=== PATIENT | male | born 1970 | race Caucasian/White ===

== ENCOUNTER 2017-04-10 14:23 | Inpatient (IN) | payer BC, OTHER ==
[~2017-04-10] VITALS: Ht 175.3 cm; Wt 65.8 kg
--- NOTE | 2017-04-10 18:30 | NUR ---
Pre-admission assessment Pt is 46 y/o male admitted for norco dependence. Pt presents with the following VS: HR: 71, BP: 122/75, SpO2: 98%, Pain: 0, RR: 14. Skin is intact. Pt expressing understanding the admission process and appears competent to sign admissions consents. Pt has provided urine for UDS. PT reports using 100mg of norco 3 hours ago.
[2017-04-10] MEDS ORDERED: PRED20TA PO (18:40)
[2017-04-10] MEDS ORDERED: MIRALAX 17 GM POWD.PACK PO PRN (18:45)
[2017-04-10] MEDS ORDERED: LORAZEPAM 2 MG/1 ML VIAL IM PRN (18:45)
[2017-04-10] MEDS ORDERED: DICYCLOMINE HCL 20 MG TABLET PO PRN (18:45)
[2017-04-10] MEDS ORDERED: BUPRENORPHINE HCL 2 MG TAB.SUBL SL PRN (18:45)
[2017-04-10] MEDS ORDERED: MAGNESIUM HYDROXIDE 30 ML LIQUID UDC PO PRN (18:45)
[2017-04-10] MEDS ORDERED: LOPERAMIDE HCL 2 MG CAPSULE PO PRN ×2 (18:45)
[2017-04-10] MEDS ORDERED: diphenhydrAMINE 50 MG CAPSULE PO PRN (18:45)
[2017-04-10] MEDS ORDERED: MAG HYDROX/AL HYDROX/SIMETH 30 ML LIQUID UDC PO PRN (18:45)
[2017-04-10] MEDS ORDERED: ONDANSETRON 4 MG/2 ML VIAL IM PRN (18:45)
[2017-04-10] MEDS ORDERED: LORAZEPAM 1 MG TABLET PO PRN ×2 (18:45)
[2017-04-10 19:18] LABS: *AMPHETAMINE, URINE NEGATIVE (NEGATIVE); *BARBITURATE, URINE NEGATIVE (NEGATIVE); *CANNABINOID, URINE NEGATIVE (NEGATIVE); *COCCAINE, URINE NEGATIVE (NEGATIVE); *OPIATE, URINE POSITIVE (NEGATIVE); *PHENCYCLIDINE SCREEN,URINE NEGATIVE (NEGATIVE)
[2017-04-10 19:31] LABS: BASOPHILS # (AUTO) 0.1 K/uL (0.0-8.0); BASOPHILS % (AUTO) 0.7 % (0.0-2.0); EOSINOPHILS % (AUTO) 0.4 % (0.0-7.0); HEMOGLOBIN 11.4 G/DL (14.0-18.0); LYMPHOCYTES # (AUTO) 3.6 K/UL (0.8-4.8); LYMPHOCYTES % (AUTO) 40.3 % (20.5-51.5); MEAN CORPUSCULAR HEMOGLOBIN 30.9 UUG (27.0-31.0); MEAN CORPUSCULAR HGB CONC 34 g/dL (32.0-37.0); MONOCYTES # (AUTO) 1.1 K/UL (0.1-1.30); MONOCYTES % (AUTO) 12.1 % (0.0-11.0); NEUTROPHILS # (AUTO) 4.2 K/UL (1.8-8.9); NEUTROPHILS % (AUTO) 46.5 % (38.5-71.5); PLATELET COUNT (AUTO) 582 K/UL (150-450)
[2017-04-10 19:36] LABS: ALANINE AMINOTRANSFERASE 18 U/L (16-63); ALKALINE PHOSPHATASE 81 U/L (50-136); ASPARTATE AMINOTRANSFERASE 28 U/L (15-37); BILIRUBIN,TOTAL 0.3 mg/dL (0.2-1.0); CARBON DIOXIDE 27 mmol/L (21-32); CHLORIDE 99 mmol/L (98-107); GLUCOSE 98 mg/dL (74-106); MAGNESIUM 2.1 mg/dL (1.8-2.4); POTASSIUM 3.6 mmol/L (3.5-5.1); TOTAL PROTEIN, SERUM 6.9 g/dL (6.4-8.2); UREA NITROGEN, BLOOD 25 mg/dL (7-18)
[2017-04-10 19:44] LABS: ETHANOL < 3 MG/DL (0-0)
[2017-04-10 19:46] LABS: THYROID STIMULATING HORMONE 0.534 mIU/mL (0.358-3.740)
[2017-04-10 20:00] VITALS: BP 109/76
--- NOTE | 2017-04-10 20:00 | NUR ---
Admission Note Pt is a 46 year old male admitted on 04/10/2017 for Opiate/ETOH/Benzo dependence. Pt denies allergies, reports history of seizure, last epsisode "6 months ago". Pt was able to provide urine drug screen. Upon admission, CIWA 4 and COWS 5, BP 109/76, pulse 65, respirations 16, SpO2 97%, temp 97.8 room air, weight 145, height 5'9". Pt denies having a primary care provider. Pt denies being hospitalized within the past 30 days. PT is able to understand and respond to all questions pertaining to his hospitalization. Substance Abuse History is as Follows: 1. Oxycodone IV 120mg/intermittently, last intake of 180mg on 04/04/2017. 2. Hydrocodone PO 100mg - 120mg/daily, last intake of 100mg on 04/10/2017 3 Vodka 1 liter/intermittently, last intake of 1 liter on 04/09/2017 4. Valium 40mg /daily, last intake of 40mg on 04/09/2017 When pt does not use he experiences s/s: "Seizures, aches, chills and sweats all over my body, anxiety". Pt longest sober period was for "a few days this year in 2017". Pts trigger to use, "because I hurt my back 4 years ago and because I'm just anxious all the time". Treatment history is as follows: [facility], 2012 for 2 weeks, [facility], 2013 for 7 days and [place], 2016 for 3 days. PMH: Anxiety, depression, Bipolar I, ADD, Degenerative Disc -Bulging L3 Disc (pt hurt his back at work), Hepatitis C and appendicitis in 2008. Pt brought medications upon admission, reconciled. Skin is noted to be flushed, pt reports anxiety, muscle aches/chills throughout body,, denies SOB/chest pain, abdomen soft, denies SI/HI. Education provided, education pamphlets provided and left at bedside, pt oriented to room and encouraged to notify staff with any concerns. Safety measures in place, call light within reach, side rails up x2, bed locked and in low position. Will continue to monitor.
[2017-04-10] MEDS: METHOCARBAMOL 750 MG TABLET PO PRN (21:41)
[2017-04-10] MEDS: HYDROXYZINE PAMOATE 25 MG CAPSULE PO PRN (21:41)
--- NOTE | 2017-04-10 21:42 | NUR ---
PRN Administration Pt reports muscle aches throughout body, anxiety and requests aid to help him sleep. Robaxin 750mg PRN, Vistaril 50mg PRN and Benadryl 50mg PRN administered. Safety measures in place, will continue to monitor.
--- NOTE | 2017-04-10 22:42 | NUR ---
PRN Reassessment Upon reassessment, pt is in bed, eyes closed resting, respirations even/unlabored, no s/s of distress noted. Safety measures in place. will continue to monitor.
[2017-04-11] VITALS: BP 107/79
--- NOTE | 2017-04-11 | NUR ---
Vital Signs Bp 107/79, pulse 82, resp 14, Spo2 96%, temp 98, no pain 0/10 COWS/CIWA deferred d/t pt sleeping - to assess while pt is awake as ordered. Safety measures in place, will continue to monitor.
[2017-04-11] MEDS ORDERED: ESCI20TA PO (02:39)
[2017-04-11 04:00] VITALS: BP 105/63
--- NOTE | 2017-04-11 04:00 | NUR ---
Vital Signs Bp 105/63, pulse 69, resp 12, Spo2 96%, temp 97.9, no pain 0/10 COWS/CIWA deferred d/t pt sleeping - to assess while pt is awake as ordered. Safety measures in place, will continue to monitor.
--- NOTE | 2017-04-11 07:00 | NUR ---
End of Shift Pt is a 46 year old male admitted for Opiate/etoh/benzo dependence. Upon admission, pt reports using Oxycodone IV 120mg/intermittently, last intake of 180mg on 04/04/2017, Hydrocodone PO 100mg - 120mg/daily, last intake of 100mg on 04/10/2017, Vodka 1 liter/intermittently, last intake of 1 liter on 04/09/2017 and Valium 40mg /daily, last intake of 40mg on 04/09/2017. PMH: Anxiety, depression, Bipolar I, ADD, Degenerative Disc -Bulging L3 Disc (pt hurt his back at work), Hepatitis C and appendicitis in 2008. NKA, fall/seizure precautions - reports seizure episode "6 months ago" d/t withdrawal. During shift, Robaxin 750mg PRN, Vistaril 50mg PRN and Benadryl 50mg PRN administered for body aches, anxiety and sleep. COWS 5 and CIWA 4. Pt slept for 5 hours, intake of 737 ml PO, voids x2 and stool x1. Safety measures in place, call light within reach, side rails up x2, bed locked and in low position. Endorsed to day shift nurse.
--- NOTE | 2017-04-11 07:05 | NUR ---
Start of Shift Pt is a 46 y/o male admitted for oxycodone and hydrocodone dependence, the pt also reports drinking vodka daily. Pt has been placed on a 5 day Ativan and 5 day Subutex taper. Pt is tolerating the taper and moderately withdrawing at this time AEB COWS 5, CIWA 4 at 1200. Pt slept 5 hours. Pt received prn Robaxin, Vistaril and Benadryl. VS WNL. Full Code. PT is alert and oriented x4. Pt is in STABLE condition at this time. Remains compliant with medication and diet regimen. All needs have been met, All safety measures in place per hospital policy. Bed in lowest position, side rails up x2, call-light within reach. Will continue to monitor
[2017-04-11 08:00] VITALS: BP 115/72
[2017-04-11] MEDS: THIAMINE HCL 100 MG TABLET PO SCH (08:39)
[2017-04-11] MEDS: MULTIVITAMINS,THERAPEUTIC TABLET PO SCH (08:39)
[2017-04-11] MEDS: FOLIC ACID 1 MG TABLET PO SCH (08:39)
[2017-04-11] MEDS ORDERED: TUBERCULIN,PURIF.PROT.DERIV. 5 TU/0.1 ML TEST ID ONE (09:00)
[2017-04-11] MEDS ORDERED: TRAZODONE 100 MG TABLET PO PRN (11:30)
[2017-04-11 12:00] VITALS: BP 119/74
[2017-04-11] MEDS: ESCITALOPRAM OXALATE 10 MG TABLET PO SCH (12:08)
[2017-04-11] MEDS: LORAZEPAM 1 MG TABLET PO SCH ×3 (13:20→20:38)
[2017-04-11] MEDS: BUPRENORPHINE HCL 2 MG TAB.SUBL SL SCH ×3 (13:20→20:41)
[2017-04-11 16:00] VITALS: BP 143/94
--- NOTE | 2017-04-11 19:07 | NUR ---
End of Shift Endorsement given to nightshift nurse. Pt is a 46 y/o male admitted for oxycodone and hydrocodone dependence, the pt also reports drinking vodka daily. Pt has been placed on a 5 day Ativan and 5 day Subutex taper. Pt is tolerating the taper and moderately withdrawing at this time AEB COWS 3, CIWA 3 at 1600. Pt participated in groups and activities. Intake: 1300ml, Void x3, BM x0. . VS WNL. Full Code. PT is alert and oriented x4. Pt is in STABLE condition at this time. Remains compliant with medication and diet regimen. All needs have been met, All safety measures in place per hospital policy. Bed in lowest position, side rails up x2, call-light within reach. Will continue to monitor
--- NOTE | 2017-04-11 19:10 | NUR ---
Start of Shift Patient Received. Patient is noted in his room, sleeping, breathing even and non labored. No signs of pain or discomfort noted. Patient is a 46 year old male, admitted on 04/10/17 for Opiate, Benzo, ETOH Dependence. He was placed on 5 day Ativan and 5 day Subutex. Patient verbalizes no known allergies, wishes to be full code, following a regular diet, skin noted intact, placed on fall and seizure precautions. Past medical History of Anxiety, Depression, Bipolar I, ADD, Degenerative Disc- Bulging L3 disc, Hep C, Appendectomy (2008). Per endorsement, patient is tolerating plan of care well with taper medications noted to be effective. Last noted CIWA noted 3 and COWS noted 3. All needs attended to promptly. Will continue to monitor.
[2017-04-11 20:23] VITALS: BP 109/62
[2017-04-11] MEDS: METHOCARBAMOL 750 MG TABLET PO PRN (20:37)
--- NOTE | 2017-04-11 20:37 | NUR ---
PRN Medication Administration Patient verbalizing back spasms. PRN Robaxin administered as per order. Will continue to monitor.
--- NOTE | 2017-04-11 21:40 | NUR ---
PRN Medication Administration patient able to verbalize back spasms noted to subsided due to PRN Tuan. Will continue to monitor. Addendum: 04/12/17 at 0719 by JESSICA CHOI LVN PRN Medication Reassessment
[2017-04-12 00:20] VITALS: BP 121/75
[2017-04-12 04:00] VITALS: BP 117/74
--- NOTE | 2017-04-12 07:08 | NUR ---
Start of Shift Pt is a 46 y/o male admitted for oxycodone and hydrocodone dependence, the pt also reports drinking vodka daily. Pt has been placed on a 5 day Ativan and 5 day Subutex taper. Pt is tolerating the tapers and moderately withdrawing at this time AEB COWS 5, CIWA 7 at 0400. Pt slept 4 hours. Pt received prn Robaxin. VS WNL. Full Code. PT is alert and oriented x4. Pt is in STABLE condition at this time. Remains compliant with medication and diet regimen. All needs have been met, All safety measures in place per hospital policy. Bed in lowest position, side rails up x2, call-light within reach. Will continue to monitor
--- NOTE | 2017-04-12 07:16 | NUR ---
End of Shift Patient is in bed sleeping. Breathing even and non labored. No signs of pain or discomfort noted. Patient is a 46 year old male, admitted on 04/10/17 for Opiate, Benzo, ETOH Dependence. He was placed on 5 day Ativan and 5 day Subutex. No known allergies, full code, following a regular diet, skin noted intact, placed on fall and seizure precautions. Past medical History of Anxiety, Depression, Bipolar I, ADD, Degenerative Disc- Bulging L3 disc, Hep C, Appendectomy (2008). PRN Robaxin administered for increased back spasms and medication noted to be effective. Last noted CIWA noted 5 and COWS noted 5. All needs attended to promptly. Will endorse to continue to monitor.
[2017-04-12 08:05] VITALS: BP 102/66
[2017-04-12] MEDS: THIAMINE HCL 100 MG TABLET PO SCH (08:45)
[2017-04-12] MEDS: ESCITALOPRAM OXALATE 10 MG TABLET PO SCH (08:45)
[2017-04-12] MEDS: FOLIC ACID 1 MG TABLET PO SCH (08:45)
[2017-04-12] MEDS: LORAZEPAM 1 MG TABLET PO SCH ×3 (08:45→21:26)
[2017-04-12] MEDS: MULTIVITAMINS,THERAPEUTIC TABLET PO SCH (08:45)
[2017-04-12] MEDS: BUPRENORPHINE HCL 2 MG TAB.SUBL SL SCH ×3 (08:46→21:27)
[2017-04-12 12:00] VITALS: BP 95/66
[2017-04-12] MEDS: METHOCARBAMOL 750 MG TABLET PO PRN (13:46)
[2017-04-12] MEDS: ACETAMINOPHEN 325 MG TABLET PO PRN (13:46)
[2017-04-12] MEDS: CLONIDINE HCL 0.1 MG TABLET PO PRN (13:46)
[2017-04-12] MEDS: ONDANSETRON ODT 4 MG TAB.RAPDIS SL PRN (13:46)
--- NOTE | 2017-04-12 13:47 | NUR ---
PRN Medications Administered PRN Zofran, Clonidine, Tylenol and Robaxin for withdrawal symptoms of nausea, body aches and chills.
--- NOTE | 2017-04-12 14:10 | NUR ---
Medication re-assessment Medications were effective AEB pt reporting pain of 2/10 from 5/10 body aches, headache of 1/10 from 6/10 and nausea has stopped.
[2017-04-12] MEDS ORDERED: TRAZODONE 100 MG TABLET PO PRN (14:30)
[2017-04-12] MEDS: GABAPENTIN 300 MG CAPSULE PO SCH ×2 (14:44→21:26)
[2017-04-12 16:00] VITALS: BP 90/51
--- NOTE | 2017-04-12 18:58 | NUR ---
End of Shift Endorsement given to nightshift nurse. Pt is a 46 y/o male admitted for oxycodone and hydrocodone dependence, the pt also reports drinking vodka daily. Pt has been placed on a 5 day Ativan and 5 day Subutex taper. Pt is tolerating the taper and moderately withdrawing at this time AEB COWS 6, CIWA 6 at 1600. Pt participated in groups and activities. PT received PRN Robaxin, Zofran, Tylenol and Clonidine for withdrawal symptoms. Encouraged pt to participate in groups and activities. Educated pt on diet regimen. Intake: 1735ml, Void x4, BM x1. . VS WNL. Full Code. PT is alert and oriented x4. Pt is in STABLE condition at this time. Remains compliant with medication and diet regimen. All needs have been met, All safety measures in place per hospital policy. Bed in lowest position, side rails up x2, call-light within reach. Will continue to monitor
--- NOTE | 2017-04-12 19:10 | NUR ---
Start of shift note Received report from day shift nurse. Pt is a 46 yo male, A+Ox4, presenting to [facility] for Opiate/ETOH/Benzo dependence. Pt has NKA, is on Full Code status, and on Regular diet. Pt is on Fall and Seizure precautions. Pt has HX of Anxiety, Depression, Bipolar, ADD, Degenerative disc, Hep C, and Appendectomy. Pt is on 5 day Ativan and 5 day Subutex tapers, tolerated well. No s/s of distress noted at this time. Respirations even and unlabored. Will continue to monitor.
[2017-04-12 20:15] VITALS: BP 99/68
[2017-04-12] MEDS: BACLOFEN 10 MG TABLET PO SCH (21:26)
[2017-04-12] MEDS: CLONIDINE HCL 0.1 MG TABLET PO SCH (21:26)
[2017-04-13 00:11] VITALS: BP 104/68
[2017-04-13] MEDS: IBUPROFEN 600 MG TABLET PO PRN (03:26)
[2017-04-13] MEDS: ONDANSETRON ODT 4 MG TAB.RAPDIS SL PRN (03:26)
--- NOTE | 2017-04-13 03:27 | NUR ---
PRN Motrin and Zofran Pt c/o headache and nausea and requested for PRN Motrin and Zofran. Medications given and tolerated well. Will reassess within 1 HR. Will continue to monitor.
--- NOTE | 2017-04-13 04:25 | NUR ---
PRN Motrin and Zofran Reassessment Medications effective. Pt expresses reduction in nausea and headache. No s/s of ASE/distress noted at this time. Respirations even and unlabored. Will continue to monitor.
[2017-04-13 04:38] VITALS: BP 115/74
[2017-04-13] MEDS: CLONIDINE HCL 0.1 MG TABLET PO PRN (04:48)
[2017-04-13] MEDS: HYDROXYZINE PAMOATE 25 MG CAPSULE PO PRN (04:48)
--- NOTE | 2017-04-13 04:50 | NUR ---
PRN Clonidine and Vistaril Pt c/o anxiety and chills. PRN Clonidine and Vistaril given and tolerated well. Will reassess within 1 HR. Will continue to monitor.
--- NOTE | 2017-04-13 05:40 | NUR ---
PRN Clonidine and Vistaril Reassessment Medication effective. Pt is resting well in bed. No s/s of distress noted at this time. Respirations even and unlabored. Will continue to monitor.
[2017-04-13 06:09] LABS: HEPATITIS B SURFACE AG Negative (Negative)
--- NOTE | 2017-04-13 06:49 | NUR ---
End of shift note Pt is a 46 yo male, A+Ox4, presenting to [facility] for Opiate/ETOH/Benzo dependence. Pt has NKA, is on Full Code status, and on Regular diet. Pt is on Fall and Seizure precautions. Pt has HX of Anxiety, Depression, Bipolar, ADD, Degenerative disc, Hep C, and Appendectomy. Pt is on 5 day Ativan and 5 day Subutex tapers, tolerated well. Pt was given PRN Motrin and Zofran @0327 and PRN Clonidine and Vistaril @0450. Pt slept for a total of 4 HRS. Last COWS: 5 and Last CIWA: 3 @0400. No s/s of distress noted at this time. Respirations even and unlabored. Will endorse to day shift nurse.
--- NOTE | 2017-04-13 07:06 | NUR ---
Start of Shift Endorsement received from nightshift nurse.Pt is a 46 y/o male admitted for oxycodone and hydrocodone dependence, the pt also reports drinking vodka daily. Pt has been placed on a 5 day Ativan and 5 day Subutex taper. Pt is tolerating the tapers and moderately withdrawing at this time AEB COWS 5, CIWA 3 at 0400. Pt slept 4 hours. Pt received prn Motrin, Zofran, Clonidine and Vistaril. Pt reports having a restless night. VS WNL. Full Code. PT is alert and oriented x4. Pt is in STABLE condition at this time. Remains compliant with medication and diet regimen. All needs have been met, All safety measures in place per hospital policy. Bed in lowest position, side rails up x2, call-light within reach. Will continue to monitor
[2017-04-13 08:00] VITALS: BP 101/64
[2017-04-13] MEDS: BACLOFEN 10 MG TABLET PO SCH ×3 (08:32→21:24)
[2017-04-13] MEDS: GABAPENTIN 300 MG CAPSULE PO SCH ×3 (08:32→21:25)
[2017-04-13] MEDS: ESCITALOPRAM OXALATE 10 MG TABLET PO SCH (08:32)
[2017-04-13] MEDS: LORAZEPAM 1 MG TABLET PO SCH ×4 (08:32→21:23)
[2017-04-13] MEDS: FOLIC ACID 1 MG TABLET PO SCH (08:32)
[2017-04-13] MEDS: MULTIVITAMINS,THERAPEUTIC TABLET PO SCH (08:33)
[2017-04-13] MEDS: THIAMINE HCL 100 MG TABLET PO SCH (08:33)
[2017-04-13] MEDS: CLONIDINE HCL 0.1 MG TABLET PO SCH ×3 (08:33→21:24)
[2017-04-13 08:47] LABS: MAGNESIUM 2.1 mg/dL (1.8-2.4); POTASSIUM 4.7 mmol/L (3.5-5.1)
[2017-04-13] MEDS ORDERED: BUPRENORPHINE HCL 2 MG TAB.SUBL SL SCH (09:00)
[2017-04-13 12:00] VITALS: BP 105/64
--- NOTE | 2017-04-13 12:13 | NUR ---
Therapist prompted client about group times. Client reported he probably won't go today because he does not feel well.
[2017-04-13] MEDS ORDERED: BUPRENORPHINE HCL 2 MG TAB.SUBL SL ONE (12:15)
[2017-04-13] MEDS: BUPRENORPHINE HCL 2 MG TAB.SUBL SL SCH ×2 (15:22→21:25)
[2017-04-13 16:00] VITALS: BP 114/73
--- NOTE | 2017-04-13 18:37 | NUR ---
End of Shift Endorsement given to nightshift nurse. Pt is a 46 y/o male admitted for oxycodone and hydrocodone dependence, the pt also reports drinking vodka daily. Pt has been placed on a 5 day Ativan and 5 day Subutex taper. Pt is tolerating the taper and mildly withdrawing at this time AEB COWS 2, CIWA 2 at 1600. Pt participated in groups and activities. Pt did not receive any PRN medications. Pt received one time dose of Subutex per Dr. Acevedo. . Encouraged pt to participate in groups and activities. Intake: 1778ml, Void x5, BM x1. . VS WNL. Full Code. PT is alert and oriented x4. Pt is in STABLE condition at this time. Remains compliant with medication and diet regimen. All needs have been met, All safety measures in place per hospital policy. Bed in lowest position, side rails up x2, call-light within reach. Will continue to monitor
[2017-04-13 20:00] VITALS: BP 125/86
--- NOTE | 2017-04-13 20:00 | NUR ---
START OF SHIFT NOTE PATIENT IN HIS ROOM. ALERT AND ORIENTED X 4. RESPIRATION EVEN AND UNLABORED. PATIENT C/O ANXIETY, SWEATING , OBSERVED TREMORS, NO N/V. PATIENT STATES HE FEELS MUCH BETTER TODAY. DENIES ANY PAIN. PATIENT STATES HE ATTENDED GROUPS. EATING AND DRINKING WELL. RECEIVED REPORT FROM DAY SHIFT NURSE. PATIENT IS A 46 YEAR OLD MALE, ADMITTED FOR OPIATE/BENZO DEPENDENCE. PATIENT IS ON HIS 4TH DAY OF HIS 5 DAYS ATIVAN AND 5 DAYS SUBUTEX TAPER. PATIENT IS FULL CODE, REGULAR DIET AND NO KNOWN ALLERGY. UPON ADMISSION. PATIENT REPORTED USING "FOR FEW DAYS". PATIENT'S DRUG OF CHOICE ARE OXYCODONE IV 120 MG INTERMITTENTLY,HYDROCODONE PO 100-120 MG , VODKA 1 LITER INTERMITTENTLY AND VALIUM 40 MG . PATIENT REPORTS PMH OF ANXIETY,DEPRESSION, BIPOLAR I ,ADD,DEGENERATIVE DISC BULGING DISC , HEP C AND APPEND (2008). ON FALL/SEIZURE PRECAUTION. PATIENT WITH SEIZURE HISTORY "LAST ONE WAS 6 MONTHS AGO" REPORTED BY PATIENT. SKIN INTACT. PATIENT WAS GIVEN ONE TIME SUBUTEX DURING THE DAY. PATIENT COMPLIANT AND COOPERATIVE. LAST COWS 4 AND CIWA 4. SAFETY MEASURES IN PLACE. CALL LIGHT IN REACH. WILL CONTINUE TO MONITOR.
[2017-04-14] VITALS: BP 91/61
--- NOTE | 2017-04-14 04:00 | NUR ---
COWS/CIWA/VS PATIENT ASLEEP AT THIS TIME. RESPIRATION EVEN AND UNLABORED. RR 15. UNABLE TO ASSESS COWS AND CIWA. WILL CONTINUE TO MONITOR.
--- NOTE | 2017-04-14 07:13 | NUR ---
END OF SHIFT NOTE PATIENT REMAIN ALERT AND ORIENTED X 4. RESPIRATION EVEN AND UNLABORED. PATIENT C/O ANXIETY, SWEATING , OBSERVED TREMORS, NO N/V BEGINNING OF SHIFT. PATIENT STATES HE FEELS MUCH BETTER TODAY. DENIES ANY PAIN. PATIENT STATES HE ATTENDED GROUPS. EATING AND DRINKING WELL FROM DAY SHIFT PATIENT IS A 46 YEAR OLD MALE, ADMITTED FOR OPIATE/BENZO DEPENDENCE. PATIENT IS ON HIS 4TH DAY OF HIS 5 DAYS ATIVAN AND 5 DAYS SUBUTEX TAPER. PATIENT IS FULL CODE, REGULAR DIET AND NO KNOWN ALLERGY. UPON ADMISSION. PATIENT REPORTED USING "FOR FEW DAYS". PATIENT'S DRUG OF CHOICE ARE OXYCODONE IV 120 MG INTERMITTENTLY,HYDROCODONE PO 100-120 MG , VODKA 1 LITER INTERMITTENTLY AND VALIUM 40 MG . PATIENT REPORTS PMH OF ANXIETY,DEPRESSION, BIPOLAR I ,ADD,DEGENERATIVE DISC BULGING DISC , HEP C AND APPEND (2008). ON FALL/SEIZURE PRECAUTION. PATIENT WITH SEIZURE HISTORY "LAST ONE WAS 6 MONTHS AGO" REPORTED BY PATIENT. SKIN INTACT. PATIENT DID NOT REQUIRE ANY PRN MEDICATION DURING THE SHIFT. PATIENT COMPLIANT AND COOPERATIVE. COMPLIANT WITH MEDICATION AND TREATMEN PLAN. SAFETY MEASURES IN PLACE. CALL LIGHT IN REACH. WILL CONTINUE TO MONITOR. SLEPT 6 HOURS. FLUID INTAKE 1,625 OF ML. VOIDED X 3 . NO BM. LAST COWS 2 AND CIWA 2.
--- NOTE | 2017-04-14 07:47 | NUR ---
Start of Shift Report received from NOC nurse. Pt is a 46 year old male admitted to [facility] on 04/10/47 for Opiate and Benzodiazepine detoxification. Pt has NKDA, is a full code with a regular diet. Pt is on fall, seizure and universal precautions. PMH of anxiety, depression, Bipolar, ADD and Degenerative Disk Disease. Pt is positive for Hep C and had a seizure 6 months ago. Pt is currently on a 5 day Ativan and Subutex taper, tolerating well. Pts last COWS 2 and CIWA 2 recorded at 0000, per NOC nurse. Pt did not receive any PRN during NOC, per reporting nurse. Pt slept 6 hours. Sign Builder Supervisor encounters pt in his room, A/O x4 and calm and cooperative. Pt has no complaints at this time and states, I am doing well. Pt is in no distress and is doing well with treatment regimen. Bed in low position with wheels locked, side rails up x2 and all safety measures in place. Will continue to monitor, support and encourage according to plan of care.
[2017-04-14 08:26] VITALS: BP 116/77
[2017-04-14] MEDS: CLONIDINE HCL 0.1 MG TABLET PO SCH ×3 (08:46→20:41)
[2017-04-14] MEDS: LORAZEPAM 1 MG TABLET PO SCH ×3 (08:46→20:39)
[2017-04-14] MEDS: BACLOFEN 10 MG TABLET PO SCH ×3 (08:47→20:39)
[2017-04-14] MEDS: ESCITALOPRAM OXALATE 10 MG TABLET PO SCH (08:47)
[2017-04-14] MEDS: FERROUS SULFATE 325 MG TABEC PO SCH ×2 (08:47→20:40)
[2017-04-14] MEDS: FOLIC ACID 1 MG TABLET PO SCH (08:47)
[2017-04-14] MEDS: GABAPENTIN 300 MG CAPSULE PO SCH ×3 (08:48→20:40)
[2017-04-14] MEDS: MULTIVITAMINS,THERAPEUTIC TABLET PO SCH (08:48)
[2017-04-14] MEDS: ASCORBIC ACID 250 MG TABLET PO SCH ×2 (08:48→20:39)
[2017-04-14] MEDS: BUPRENORPHINE HCL 2 MG TAB.SUBL SL SCH ×3 (08:48→20:40)
[2017-04-14] MEDS: THIAMINE HCL 100 MG TABLET PO SCH (08:48)
[2017-04-14] MEDS ORDERED: PNEUMOCOCCAL 23-VAL P-SAC VAC 0.5 ML VIAL IM ONE (09:00)
[2017-04-14 12:10] VITALS: BP 94/61
[2017-04-14] MEDS: DICYCLOMINE HCL 20 MG TABLET PO SCH ×2 (14:14→20:41)
[2017-04-14 16:20] VITALS: BP 121/78
--- NOTE | 2017-04-14 19:13 | NUR ---
START OF SHIFT NOTE: Patient endorsed by day shift nurse. Report received. Patient is a 46 year old male admitted to [facility] on 04/10/2017 for Benzodiazepines, ETOH, opioid dependence, started ordered 5 day Ativan and 5 day Subutex taper since 04/11/2017, which tolerated well without ASE. Patient remains compliant with treatment, medications, and diet regime. Patient reports NKA, is on Regular diet, is on Full Code, is on Fall and Seizures Precautions. Patient reports PMH: Anxiety, Depression, Bipolar disorder, Seizure episode "6 months ago" as patient reported, ADD, Hepatitis C, Appendectomy(2008), Degenerative disc bulging - L3 disc. Patient reports Substance use history: Oxycodone IV: " 120 mg intermittently during few days. Last used 120 mg on 04/04/2017". Hydrocodone PO: " 100-120 mg daily during few days. Last used 100 mg on 04/10/2017". ETOH PO: "Vodka 1liter intermittently during few days. Last used 1 liter on 04/09/20". Valium PO: "40 mg every day during few days . Last used 40 mg on 04/09/2017". Patient reports treatment history:"[facility] [address]" in 2012 for 2 weeks, and in 2013 for 7 days. "[place]" in 2016 for 3 days. Upon endorsement, patient is in his room alert and oriented x4, ambulatory with stable gait, cooperative. CIWA 3. Patient presented with anxiety and barely sweating. VSWNL. Respirations even and unlabored. Lung Sounds are clear bilaterally. Patient denies SOB and chest pain. Heart rate regular. Bowel Sounds active in all 4 quadrants. Last BM was today, on 04/14/17 at 1600. Skin is intact, warm and dry to touch. Encouraged to fluids intake as tolerated. Patient attended groups activities. All needs met. Safety measures in the place. Call light within reach, bed in the lowest position and locked, padded rails up bilaterally. Will continue to monitor closely. Addendum: 04/14/17 at 2147 by IGNACIA RIKC RN COWS 5, CIWA 3. Patient presented with anxiety, agitation, nervousness, mild body aches, and barely sweating.
--- NOTE | 2017-04-14 19:13 | NUR ---
End of Shift Report provided t alvin [facility] staff. Pt is a 46 year old male admitted to [facility] on 04/10/47 for Opiate and ETOH and Benzodiazepine detoxification. Pt has NKDA, is a full code with a regular diet. Pt is on fall, seizure and universal precautions. PMH of anxiety, depression, Bipolar, ADD and Degenerative Disk Disease. Pt is positive for Hep C and had a seizure 6 months ago. Pt is currently on a 5 day Ativan and Subutex taper, tolerating well. Pts last COWS 3 and CIWA 1 recorded at 1600. Pt did not receive any PRN during this shift. Pt is cooperative with a hyper-active affect and hyper-verbal with a bright affect and congruent mood. A/O x4. Pt has not made any complaints today and is tolerating treatment well. Makes his needs known. Pt is in no distress and is doing well with treatment regimen. Bed in low position with wheels locked, side rails up x2, call light within reach and all safety measures in place. Will continue to monitor, support and encourage according to plan of care. Addendum: 04/14/17 at 1958 by IGNACIA RICK RN COWS 3
[2017-04-14 20:00] VITALS: BP 127/79
[2017-04-15] VITALS: BP 124/82
--- NOTE | 2017-04-15 00:16 | NUR ---
PRN TRAZODONE 150 MG PO ADMINISTRATION Patient c/o insomnia and asked aid. PRN Trazodone 150 mg PO administrated as ordered with full glass of water. Patient tolerated well. All needs met. Safety measures in the place. Call light within reach, bed in the lowest position and locked, padded rails up bilaterally. Will continue to monitor closely.
[2017-04-15] MEDS: ONDANSETRON ODT 4 MG TAB.RAPDIS SL PRN (00:31)
--- NOTE | 2017-04-15 00:32 | NUR ---
RN note PRN Zofran Pt c/o nausea, no vomiting. Administer Zofran 4 mg ODT. No SOB noted. Will reassess.
--- NOTE | 2017-04-15 01:16 | NUR ---
RE-ASSESSMENT Patient is sleeping. RR: 16. Respirations even and unlabored. PRN Trazodone PO was effective. Alll needs met. Safety measures on place. Call light within reach, bed in lowest position and locked, padded rails up bilaterally rails up bilaterally. Will continue to monitor closely.
--- NOTE | 2017-04-15 01:32 | NUR ---
RE-ASSESSMENT Patient is sleeping. RR: 17. Respirations even and unlabored. PRN Zofran PO was effective. All needs met. Safety measures on place. Call light within reach, bed in lowest position and locked, padded rails up bilaterally rails up bilaterally. Will continue to monitor closely.
[2017-04-15 04:00] VITALS: BP 122/86
--- NOTE | 2017-04-15 07:18 | NUR ---
END OF SHIFT NOTE: Patient endorsed to day shift nurse in stable condition. Report given. Patient is a 46 year old male admitted to [facility] on 04/10/2017 for Benzodiazepines, ETOH, opioid dependence, continue ordered 5 day Ativan and 5 day Subutex taper since 04/11/2017, which tolerated well without ASE. Patient remains compliant with treatment, medications, and diet regime. Patient reports NKA, is on Regular diet, is on Full Code, is on Fall and Seizures Precautions. Patient reports PMH: Anxiety, Depression, Bipolar disorder, Seizure episode "6 months ago" as patient reported, ADD, Hepatitis C, Appendectomy(2008), Degenerative disc bulging - L3 disc. Patient reports Substance use history: Oxycodone IV: " 120 mg intermittently during few days. Last used 120 mg on 04/04/2017". Hydrocodone PO: " 100-120 mg daily during few days. Last used 100 mg on 04/10/2017". ETOH PO: "Vodka 1liter intermittently during few days. Last used 1 liter on 04/09/20". Valium PO: "40 mg every day during few days . Last used 40 mg on 04/09/2017". Patient reports treatment history:"[facility] [address]" in 2012 for 2 weeks, and in 2013 for 7 days. "[place]" in 2016 for 3 days. Upon last assessment at 0400: COWS 6, CIWA 4. Patient presented with anxiety, agitation, nervousness, body aches, barely sweating, and yawning. Patient denies SI/HI. VSWNL. Respirations even and unlabored. Patient denies SOB and chest pain. Skin is intact, warm and dry to touch. Encouraged to fluids intake as tolerated. Patient attended groups activities. PRN Zofran PO for nausea and PRN Trazodone PO for insomnia were effective. Patient slept 3 hours, intake 2,092ml, voided x4. All needs met. Safety measures in the place. Call light within reach, bed in the lowest position and locked, padded rails up bilaterally.
--- NOTE | 2017-04-15 08:05 | NUR ---
START OF SHIFT Patient is a 46 year old male admitted for opiate/ benzo/ etoh dependence. Pt received in room on bed with eyes closed resting, but easily arousable to name. Pt alert and oriented to name, place, and time. Perrla. Skin warm and slightly moist to touch. Respirations even and unlabored. It was reported that pt slept for 3 hours last night. Bed on lowest position with side rails x2 up for safety. Call light within reach. No distress noted at this time.
--- NOTE | 2017-04-15 08:30 | NUR ---
NSG ENTRY Pt observed with side rails x4 up. Pt stated he put all 4 siderails up. Educated pt to have at least 2 siderails down.
[2017-04-15 08:36] VITALS: BP 96/62
[2017-04-15] MEDS ORDERED: BUPRENORPHINE HCL 2 MG TAB.SUBL SL SCH (09:00)
[2017-04-15] MEDS: BACLOFEN 10 MG TABLET PO SCH ×3 (09:20→21:28)
[2017-04-15] MEDS: THIAMINE HCL 100 MG TABLET PO SCH (09:20)
[2017-04-15] MEDS: DICYCLOMINE HCL 20 MG TABLET PO SCH ×3 (09:20→21:28)
[2017-04-15] MEDS: ASCORBIC ACID 250 MG TABLET PO SCH ×2 (09:20→21:28)
[2017-04-15] MEDS: MULTIVITAMINS,THERAPEUTIC TABLET PO SCH (09:20)
[2017-04-15] MEDS: LORAZEPAM 1 MG TABLET PO SCH ×2 (09:20→21:28)
[2017-04-15] MEDS: GABAPENTIN 300 MG CAPSULE PO SCH ×2 (09:20→14:37)
[2017-04-15] MEDS: ESCITALOPRAM OXALATE 10 MG TABLET PO SCH (09:20)
[2017-04-15] MEDS: FOLIC ACID 1 MG TABLET PO SCH (09:20)
[2017-04-15] MEDS: CLONIDINE HCL 0.1 MG TABLET PO SCH ×2 (09:21→14:37)
[2017-04-15] MEDS: FERROUS SULFATE 325 MG TABEC PO SCH ×2 (09:21→21:29)
[2017-04-15 12:40] VITALS: BP 109/75
[2017-04-15] MEDS: BUPRENORPHINE HCL 2 MG TAB.SUBL SL SCH ×2 (16:24→21:30)
--- NOTE | 2017-04-15 16:41 | NUR ---
Therapist prompted client to attend group therapy. Client stated he would make an effort to attend.
[2017-04-15 16:52] VITALS: BP 111/77
--- NOTE | 2017-04-15 17:15 | NUR ---
END OF SHIFT Pt 46 y/o male admitted for opiate/ benzo/ etoh dependence. Pt alert and oriented to name, place, and time. Perrla. Skin warm and dry to touch. Respirations even and unlabored. Pt with periods of anxiety throughout the morning, with pressured speech noted. Pt observed mostly in dining room throughout the day. Pt medication compliant and tolerated well. No ASE noted. Bed on lowest position with side rails x2 up for safety. Had to remind pt multiple time to just have 2 side rails x2 up because pt kept up on putting all 4 side rails up. Call light within reach. No distress noted at this time. Addendum: 04/15/17 at 1837 by ABDIRIZAK KO RN incorrect time
[2017-04-15] MEDS: ACETAMINOPHEN 325 MG TABLET PO PRN (18:27)
--- NOTE | 2017-04-15 18:30 | NUR ---
PRN Pt with c/o headache 02/17. Tylenol po prn per MD order given and tolerated well.
--- NOTE | 2017-04-15 18:37 | NUR ---
END OF SHIFT Pt 46 y/o male admitted for opiate/ benzo/ etoh dependence. Pt alert and oriented to name, place, and time. Perrla. Skin warm and dry to touch. Respirations even and unlabored. Pt with periods of anxiety throughout the morning, with pressured speech noted. Pt observed mostly in dining room throughout the day. Pt medication compliant and tolerated well. No ASE noted. Bed on lowest position with side rails x2 up for safety. Had to remind pt multiple time to just have 2 side rails x2 up because pt kept up on putting all 4 side rails up. Call light within reach. No distress noted at this time.
--- NOTE | 2017-04-15 19:06 | NUR ---
PRN EVAL Pt stated headache 11/20.
[2017-04-15 20:00] VITALS: BP 121/78
--- NOTE | 2017-04-15 20:15 | NUR ---
START OF SHIFT NOTE Pt is 46 y/o male admitted for Oxycodone, Hydorcodone, ETOH, and Valium dependence. Pt has NKA but reported a PMH of anxiety, depression, bipolar, ADD, degenerative disc, HEP C and append (2008). Per day shift nurse pt was placed on a 5 day Subutex and Ativan taper and is tolerating medication well with no s/e or a/r reported. Pt received Tylenol PO PRN during the day shift. Last COW: 6 and CIWA: 3 (1600). At this time pt is in his room watching television. Pt is a/o x 4 with no changes in LOC. Skin is dry and intact. PERRLA noted. Breathing is even and unlabored. Bowel sounds are present in all 4 quadrants. Pt denies any pain/discomfort. Pt stated I've been having a pretty good day. Pt was encouraged to notify staff of any changes in condition or of any concerns. Pt verbalized an understanding. All safety measures in place; side rails up x 2, bed locked and in low position, and call light within reach. Will continue to monitor.
[2017-04-15] MEDS: GABAPENTIN 400 MG CAPSULE PO SCH (21:27)
[2017-04-16] VITALS: BP 105/68
--- NOTE | 2017-04-16 04:00 | NUR ---
VITALS REFUSED / COW AND CIWA DEFERRED Pt refused to have vitals taken at this time. Pt was encouraged x 3 with risks and benefits explained, but the pt still refused. Pt is asleep in bed with no signs of discomfort/distress noted. COW and CIWA assessment deferred until pt is awake. All safety measures in place. Will continue to monitor Addendum: 04/16/17 at 0717 by ROMERO JONES LVN Amended: Links added.
--- NOTE | 2017-04-16 07:24 | NUR ---
END OF SHIFT NOTE Pt is 46 y/o male admitted for Oxycodone, Hydrocodone, ETOH, and Valium dependence. Pt has NKA but reported a PMH of anxiety, depression, bipolar, ADD, degenerative disc, HEP C and append (2008). Pt continues on a 5 day Subutex and Ativan taper and is tolerating medication well with no s/e or a/r reported. Pt didn't receive any PRNS during the shift. Last COW: 4 and CIWA: 0 (0000). Pt slept for a total of 4 hours. All safety measures in place; side rails up x 2, bed locked and in low position, and call light within reach. Will endorse to the oncoming nurse.
--- NOTE | 2017-04-16 07:30 | NUR ---
Start of shift note; Received report from night nurse. Patient is a 46 year old male admitted on 04/10/17 for Opiate/ETOH/Benzo withdrawals. Patient was placed on a 5 day Ativan and 5 day Subutex taper,no adverse reactions noted. Patient reported history of anxiety, depression, bipolar , ADD, degenerative disc, HEP C. Patient slept for 4 hours last night. Patient is currently AOX4. All safety measures secured. Will continue to monitor patient.
[2017-04-16 08:00] VITALS: BP 107/74
[2017-04-16] MEDS: BACLOFEN 10 MG TABLET PO SCH ×3 (08:43→21:07)
[2017-04-16] MEDS: MULTIVITAMINS,THERAPEUTIC TABLET PO SCH (08:44)
[2017-04-16] MEDS: ASCORBIC ACID 250 MG TABLET PO SCH ×2 (08:44→21:06)
[2017-04-16] MEDS: THIAMINE HCL 100 MG TABLET PO SCH (08:44)
[2017-04-16] MEDS: ESCITALOPRAM OXALATE 10 MG TABLET PO SCH (08:44)
[2017-04-16] MEDS: GABAPENTIN 400 MG CAPSULE PO SCH ×3 (08:44→21:08)
[2017-04-16] MEDS: DICYCLOMINE HCL 20 MG TABLET PO SCH ×3 (08:44→21:08)
[2017-04-16] MEDS: FERROUS SULFATE 325 MG TABEC PO SCH ×2 (08:45→21:05)
[2017-04-16] MEDS: CLONIDINE HCL 0.1 MG TABLET PO SCH ×2 (08:45→21:08)
[2017-04-16] MEDS: FOLIC ACID 1 MG TABLET PO SCH (08:45)
[2017-04-16] MEDS ORDERED: BUPRENORPHINE HCL 2 MG TAB.SUBL SL SCH (09:00)
[2017-04-16 12:00] VITALS: BP 105/77
--- NOTE | 2017-04-16 12:09 | NUR ---
PRN medication; Patient is complaining of heartburn. PRN Maalox given for heartburn, will continue to monitor for effectiveness of medication.
[2017-04-16] MEDS ORDERED: DICY20TA28 PO (12:23)
[2017-04-16] MEDS ORDERED: IBUP-1955 PO (12:23)
[2017-04-16] MEDS ORDERED: GABA-536 PO (12:23)
[2017-04-16] MEDS ORDERED: HYDR-3895 PO (12:23)
[2017-04-16] MEDS ORDERED: FERR325T28 PO (12:23)
[2017-04-16] MEDS ORDERED: TRAZ-147 PO (12:23)
[2017-04-16] MEDS ORDERED: CLON0.1T14 PO (12:23)
[2017-04-16] MEDS ORDERED: BACL10TA PO (12:23)
[2017-04-16] MEDS ORDERED: ASCO250T5 PO (12:23)
[2017-04-16] MEDS: ACETAMINOPHEN 325 MG TABLET PO PRN (12:36)
--- NOTE | 2017-04-16 13:06 | NUR ---
Therapist prompted client about group times. Client stated he will try to attend all groups.
--- NOTE | 2017-04-16 13:08 | NUR ---
PRN medication; Patient is complaining of back pain rated 6/10, PRN Tylenol 650mg PO given as ordered. Will continue to monitor patient for effectiveness of medication.
--- NOTE | 2017-04-16 13:09 | NUR ---
Re-assessment; Patient denies heartburn at this time. PRN medication is effective.
--- NOTE | 2017-04-16 14:08 | NUR ---
Re-assessment; Patient denies pain at this time. PRN medication is effective.
[2017-04-16 15:28] LABS: *AMPHETAMINE, URINE NEGATIVE (NEGATIVE); *BARBITURATE, URINE NEGATIVE (NEGATIVE); *CANNABINOID, URINE NEGATIVE (NEGATIVE); *COCCAINE, URINE NEGATIVE (NEGATIVE); *OPIATE, URINE NEGATIVE (NEGATIVE); *PHENCYCLIDINE SCREEN,URINE NEGATIVE (NEGATIVE)
[2017-04-16 16:00] VITALS: BP 109/73
--- NOTE | 2017-04-16 18:19 | NUR ---
End of shift note; Patient is AOX4. Patient remained complaint with treatment plan and medication regime. Medications were effective in reducing withdrawal symptoms. Patient is medically cleared for discharge tomorrow. All safety measures secured. Met all needs.
[2017-04-16 20:00] VITALS: BP 116/80
--- NOTE | 2017-04-16 20:17 | NUR ---
START OF SHIFT NOTE Pt is 46 y/o male admitted for Oxycodone, Hydorcodone, ETOH, and Valium dependence. Pt has NKA but reported a PMH of anxiety, depression, bipolar, ADD, degenerative disc, HEP C and append (2008). Per day shift nurse pt completed taper and is scheduled for discharge tomorrow. Pt received Tylenol PO PRN and Maalox PO PRN during the day shift. Last COW: 3 and CIWA: 0 (1600). At this time pt is in his room watching television. Pt is a/o x 4 with no changes in LOC. Skin is dry and intact. PERRLA noted. Breathing is even and unlabored. Bowel sounds are present in all 4 quadrants. Pt denies any pain/discomfort. Pt stated "I was nauseous when I was downstairs but now I'm better. I don't know what that was." Pt was encouraged to notify staff of any changes in condition or of any concerns. Pt verbalized an understanding. All safety measures in place; side rails up x 2, bed locked and in low position, and call light within reach. Will continue to monitor.
--- NOTE | 2017-04-17 | NUR ---
VITALS REFUSED/ COW AND CIWA DEFERRED Pt refused to have vitals taken at this time. Pt was encouraged x 3 with risks and benefits explained, but the pt still declined. COW and CIWA assessments deferred until pt is awake. All safety measures in place. Will continue to monitor. Addendum: 04/17/17 at 0223 by ROMERO JONES LVN Amended: Links added.
[2017-04-17] MEDS: ACETAMINOPHEN 325 MG TABLET PO PRN (00:22)
--- NOTE | 2017-04-17 00:22 | NUR ---
TYLENOL PRN ADMINISTRATION Pt approached the nurse's station stating " Can I have some Tylenol? My back is starting to get sore again." Tylenol 650 mg PO PRN was given. Pt was encouraged to notify staff of any changes in condition or of any further concerns. Pt verbalized an understanding. All safety measures in place. Will monitor for effectiveness.
--- NOTE | 2017-04-17 01:22 | NUR ---
TYLENOL PRN REASSESSMENT Pt stated " My back feels a lot better." PRN effective. All safety measures in place. Will continue to monitor.
[2017-04-17 04:00] VITALS: BP 130/87
--- NOTE | 2017-04-17 07:25 | NUR ---
END OF SHIFT NOTE Pt is 46 y/o male admitted for Oxycodone, Hydrocodone, ETOH, and Valium dependence. Pt has NKA but reported a PMH of anxiety, depression, bipolar, ADD, degenerative disc, HEP C and append (2008). Pt completed taper and is scheduled for discharge today. Pt received Tylenol 650 mg PO PRN during the shift. Last COW: 2 and CIWA: 1 (0400). Pt slept for a total of 3 hours. All safety measures in place; side rails up x 2, bed locked and in low position, and call light within reach. Will endorse to the oncoming nurse.
[2017-04-17] MEDS: IBUPROFEN 600 MG TABLET PO PRN (07:51)
[2017-04-17 08:00] VITALS: BP 128/67
[2017-04-17] MEDS: DICYCLOMINE HCL 20 MG TABLET PO SCH (08:16)
[2017-04-17] MEDS: ASCORBIC ACID 250 MG TABLET PO SCH (08:16)
[2017-04-17] MEDS: ESCITALOPRAM OXALATE 10 MG TABLET PO SCH (08:16)
[2017-04-17] MEDS: GABAPENTIN 400 MG CAPSULE PO SCH (08:16)
[2017-04-17 08:17] VITALS: BP 128/81
[2017-04-17] MEDS: FOLIC ACID 1 MG TABLET PO SCH (08:17)
[2017-04-17] MEDS: CLONIDINE HCL 0.1 MG TABLET PO SCH (08:17)
[2017-04-17] MEDS: FERROUS SULFATE 325 MG TABEC PO SCH (08:17)
[2017-04-17] MEDS: MULTIVITAMINS,THERAPEUTIC TABLET PO SCH (08:17)
[2017-04-17] MEDS: BACLOFEN 10 MG TABLET PO SCH (08:17)
[2017-04-17] MEDS: THIAMINE HCL 100 MG TABLET PO SCH (08:17)
--- NOTE | 2017-04-17 09:28 | NUR ---
Discharge note; Patient is AOX4. Patient is medically cleared for discharge. All patient's valuables and belongings given to patient. Patient left in a stable condition. Patient left the hospital at exactly 0928 on 04/17/17. Patient completed treatment without any adverse reactions. Patient denies S/I. Patient left in a stable condition. Met all needs.
== END 2017-04-17 09:28 | disposition other institution (70) | DRG 895 ==
LOC: SRC 17:41
PROVIDERS: ADMIT Internal Medicine; ATTEND Internal Medicine
PROC: HZ2ZZZZ Detoxification Services for Substance Abuse Treatment (ICD-10-PCS; principal; 2017-04-10)
PROC: HZ31ZZZ Individual Counseling for Substance Abuse Treatment, Behavioral (ICD-10-PCS; 2017-04-12)
PROC: HZ41ZZZ Group Counseling for Substance Abuse Treatment, Behavioral (ICD-10-PCS; 2017-04-13)
DX: F10.239 Alcohol dependence with withdrawal, unspecified (principal); F31.32 Bipolar disorder, current episode depressed, moderate; E87.3 Alkalosis; E87.1 Hypo-osmolality and hyponatremia; Y90.9 Presence of alcohol in blood, level not specified; F13.120 Sedative, hypnotic or anxiolytic abuse with intoxication, uncomplicated; F17.210 Nicotine dependence, cigarettes, uncomplicated; B19.20 Unspecified viral hepatitis C without hepatic coma; G47.00 Insomnia, unspecified; G89.29 Other chronic pain; F41.9 Anxiety disorder, unspecified; M54.5 Low back pain; E86.0 Dehydration; D50.9 Iron deficiency anemia, unspecified; E87.8 Other disorders of electrolyte and fluid balance, not elsewhere classified; F90.9 Attention-deficit hyperactivity disorder, unspecified type
CPT/HCPCS: 36415; 70030-TC; 71010; 80307; 80346; 80361; 82746; 83550; 83735; 84443; 85025; 86592; 86705; 86803; 87340; 87806; 93005; G0480; Q0162; Q0163